=== PATIENT | male | born 1970 | race African-American/Black ===

== ENCOUNTER 2020-11-15 05:51 | Emergency (ER) | payer OTHER ==
[~2020-11-15] VITALS: Ht 182.9 cm; Wt 85.3 kg
[2020-11-15] MEDS ORDERED: IV NORMAL SALINE 1000 ML BAG IV ONE ×2 (06:30→08:15)
[2020-11-15 07:03] LABS: BASOPHILS % (AUTO) 0.4 % (0.0-2.0); EOSINOPHILS % (AUTO) 0.3 % (0.0-7.0); HEMATOCRIT 43.9 % (36.7-47.1); HEMOGLOBIN 14.6 g/dL (12.5-16.3); LYMPHOCYTES # (AUTO) 1.1 K/uL (20.0-40.0); LYMPHOCYTES % (AUTO) 26.9 % (20.5-51.5); MEAN CORPUSCULAR HEMOGLOBIN 28.6 uug (23.8-33.4); MEAN CORPUSCULAR HGB CONC 33 g/dL (32.5-36.3); MONOCYTES # (AUTO) 0.3 K/uL (2.0-10.0); MONOCYTES % (AUTO) 6.9 % (0.0-11.0); NEUTROPHILS # (AUTO) 2.8 K/uL (1.8-8.9); NEUTROPHILS % (AUTO) 65.5 % (38.5-71.5); PLATELET COUNT (AUTO) 240 K/uL (152-348); WHITE BLOOD COUNT (AUTO) 4.2 K/uL (3.6-10.2)
[2020-11-15 07:15] LABS: CREATININE 1.6 mg/dL (0.6-1.3); POTASSIUM 3.4 mmol/L (3.5-5.1)
--- NOTE | 2020-11-15 07:16 | NUR ---
Report given to ANGELICA BROWN
[2020-11-15 07:20] LABS: BILIRUBIN,DIRECT 0.1 mg/dL (0.0-0.2); BILIRUBIN,TOTAL 0.4 mg/dL (0.2-1.0); TOTAL PROTEIN, SERUM 7.3 g/dL (6.4-8.2)
[2020-11-15 07:29] LABS: *BILIRUBIN,URIN NEGATIVE (NEGATIVE); *BLOOD, URINE 1+ (NEGATIVE); *CLARITY,URINE CLEAR (CLEAR); *COLOR,URINE YELLOW (YELLOW); *KETONES,URINE 1+ (NEGATIVE); *UROBILINOGEN,URINE 0.2 E.U./dl (NORMAL); LEUKOCYTE ESTERASE ,URINE NEGATIVE (NEGATIVE); NITRITE, URINE NEGATIVE (NEGATIVE); PH,URINE 5.5 (5.0-8.0); UGLUCOSE NEGATIVE (NEGATIVE)
--- NOTE | 2020-11-15 07:56 | NUR ---
Dr Naik at the bedside discussing plan of care w/ pt.
[2020-11-15] MEDS ORDERED: ONDANSETRON 4 MG/2 ML VIAL IV ONE (08:15)
[2020-11-15] MEDS ORDERED: MORPHINE SULFATE 4 MG/1 ML DISP.SYRIN IV ONE ×2 (08:15→09:00)
[2020-11-15] MEDS ORDERED: MORPHINE SULFATE 4 MG/1 ML DISP.SYRIN ONE ×2 (08:19→08:55)
[2020-11-15] MEDS ORDERED: ONDANSETRON 4 MG/2 ML VIAL ONE (08:19)
--- NOTE | 2020-11-15 08:32 | NUR ---
VINCENT FROM [employer] WAS JUST NOTIFIED OF THIS STUDY. SINCE THE ORDER JUST CAME IN. IT SEEMS WE WERE HAVING AN ISSUE WITH THE PRINTER, WHICH I RESTARTER AND IS NOW WORKING PROPERLY.
--- NOTE | 2020-11-15 10:29 | NUR ---
Patient discharged to home in stable condition. Written and verbal after care instructions given. Patient verbalizes understanding of instructions. Stressed follow up or return to ER for worsening s/s.
[2020-11-15 10:30] VITALS: BP 129/77
--- NOTE | 2020-11-15 10:30 | NUR ---
IV removed. Catheter intact and site benign. Pressure and 4x4 gauze applied to site. No bleeding noted.
--- NOTE | 2020-11-15 12:02 | NUR ---
left message. would like patient to return secondary to elevated ck
--- NOTE | 2020-11-15 12:23 | NUR ---
SPOKE TO . THE PATIENT IS RETURNING HERE
[2020-11-15 13:53] LABS: BACTERIA,URINE NONE SEEN /HPF (NONE SEEN); SQUAMOUS EPITHELIAL CELL,UR FEW /HPF (NONE SEEN); WBC,URINE NONE SEEN /HPF (0-3)
== END 2020-11-15 10:31 | disposition home or self-care (01) ==
LOC: ER 06:14
DX: R10.31 Right lower quadrant pain (principal); K62.89 Other specified diseases of anus and rectum; Z87.448 Personal history of other diseases of urinary system; R94.5 Abnormal results of liver function studies; Z82.49 Family history of ischemic heart disease and other diseases of the circulatory system; E87.6 Hypokalemia
CPT/HCPCS: 36415; 74176; 76872; 80048; 80076; 81001; 82550; 83605; 83690; 84153; 84484; 85025; 85730; 87086; 96361; 96374; 96375; 96376; 99285; J2270 ×2; J2405; 70030-TC; 93005; A4663; J7030

== ENCOUNTER 2020-11-15 12:56 | Inpatient (IN) | payer OTHER ==
[~2020-11-15] VITALS: Ht 182.9 cm; Wt 85.3 kg
[2020-11-15] MEDS ORDERED: IV NORMAL SALINE 1000 ML BAG IV ONE (13:15)
[2020-11-15] MEDS ORDERED: ONDANSETRON 4 MG/2 ML VIAL IV PRN (15:00)
[2020-11-15] MEDS ORDERED: MAGNESIUM HYDROXIDE 30 ML LIQUID UDC PO PRN (15:00)
[2020-11-15] MEDS ORDERED: ACETAMINOPHEN 325 MG TABLET PO PRN (15:00)
--- NOTE | 2020-11-15 15:11 | NUR ---
ENRIQUE SARABIA NP t bedside.
--- NOTE | 2020-11-15 15:20 | NUR ---
US TECH AT [facility].
--- NOTE | 2020-11-15 15:59 | NUR ---
pt transfered to floor in stable condition. pt remained calm the whole er. pt said feels better.
[2020-11-15 16:30] VITALS: BP 143/65
[2020-11-15] MEDS: IV NS 1000 ML 1,000 ML IV PRN (19:54)
[2020-11-15 20:23] VITALS: BP 138/46
[2020-11-15] MEDS: CIPROFLOXACIN HCL 250 MG TABLET PO SCH (20:45)
[2020-11-15] MEDS ORDERED: HYDROCODONE/APAP 5-325MG TABLET PO PRN (21:15)
[2020-11-15 23:00] LABS: *AMPHETAMINE, URINE NEGATIVE (NEGATIVE); *CANNABINOID, URINE NEGATIVE (NEGATIVE); *COCCAINE, URINE NEGATIVE (NEGATIVE); *OPIATE, URINE POSITIVE (NEGATIVE); *PHENCYCLIDINE SCREEN,URINE NEGATIVE (NEGATIVE)
[2020-11-16] MEDS: IV NS 1000 ML 1,000 ML IV PRN ×4 (01:41→20:24)
[2020-11-16 05:37] VITALS: BP 139/60
--- NOTE | 2020-11-16 06:00 | NUR ---
END OF SHIFT REPORT Pt rested well in between care; urine sent to lab; no BM overnight; IVF started and tolerated well; continue to monitor.
[2020-11-16 07:15] LABS: BASOPHILS % (AUTO) 0.3 % (0.0-2.0); EOSINOPHILS % (AUTO) 0.6 % (0.0-7.0); HEMATOCRIT 38.2 % (36.7-47.1); HEMOGLOBIN 12.8 g/dL (12.5-16.3); LYMPHOCYTES # (AUTO) 1.2 K/uL (20.0-40.0); LYMPHOCYTES % (AUTO) 31.8 % (20.5-51.5); MEAN CORPUSCULAR HGB CONC 34 g/dL (32.5-36.3); MEAN CORPUSCULAR VOLUME 86.3 fL (73.0-96.2); MONOCYTES # (AUTO) 0.3 K/uL (2.0-10.0); MONOCYTES % (AUTO) 7.4 % (0.0-11.0); NEUTROPHILS # (AUTO) 2.2 K/uL (1.8-8.9); NEUTROPHILS % (AUTO) 59.9 % (38.5-71.5); PLATELET COUNT (AUTO) 214 K/uL (152-348); RED BLOOD CELL COUNT(AUTO) 4.42 MIL/uL (4.06-5.63); WHITE BLOOD COUNT (AUTO) 3.7 K/uL (3.6-10.2)
[2020-11-16 07:25] LABS: CREATININE 1.6 mg/dL (0.6-1.3); PHOSPHOROUS 3.5 mg/dL (2.5-4.9); POTASSIUM 5.2 mmol/L (3.5-5.1)
[2020-11-16 08:17] VITALS: BP 142/82
[2020-11-16 08:40] LABS: THYROID STIMULATING HORMONE 1.866 mIU/mL (0.358-3.740)
[2020-11-16] MEDS: CIPROFLOXACIN HCL 250 MG TABLET PO SCH ×2 (08:59→20:09)
[2020-11-16] MEDS ORDERED: DEXTROSE 50% 50 ML DISP.SYRIN IV ONE (09:30)
[2020-11-16] MEDS ORDERED: INSULIN REGULAR, HUMAN 300 UNIT/3 ML VIAL IV ONE (09:30)
--- NOTE | 2020-11-16 13:42 | NUR ---
Upon the supervision of the charged nurse pt was administered with 10 units Regular insulin and dextrose 50%/50ml for hyperkalemia of 5.2, on reassessment the glucose went down to 21, patient is awake, alert oriented, able to converse needs, he was given orange juice with four packets of pure sugar and provided sandwich to eat. pt was frequently observe for s/s of hypoglycemia. charged nurse and ELLEN Ray was informed. on reassessment blood glucose was 64, provided with orange juice with pure sugar, pt ate his lunch. on reassessment finger stick blood glucose was 91. ELLEN Ray was informed. pt don't have s/s of hyperglycemia. will be on regular monitoring
--- NOTE | 2020-11-16 14:00 | NUR ---
had collected stool sample, brought to lab
[2020-11-16 16:06] VITALS: BP 141/69
[2020-11-16 20:55] VITALS: BP 139/54
--- NOTE | 2020-11-16 20:57 | NUR ---
Received pt resting in bed and talking on the phone. AAO x4. No acute distress noted. Denies pain/ discomfort. Due meds given as ordered. Pt on IVF NS 150cc/ hr. Pt unable to tolerate the rate as pt complain of pressure and discomfort. IV patent and intact. Notified Dr. Dong during rounds, and received order to decreased the rate to 100cc/hr. Pt stated that it feels better and comfortable now. Safety measures maintained. Call light and personal items within reach. Will continue to monitor.
[2020-11-16 21:52] LABS: EOSINOPHILS % (MANUAL) 1 % (0-8); LYMPHOCYTES % (MANUAL) 38 % (20-40); MONOCYTES % (MANUAL) 10 % (2-10); NEUTROPHILS % (MANUAL) 51 % (42-75)
[2020-11-17 04:35] VITALS: BP 135/79
[2020-11-17] MEDS: IV NS 1000 ML 1,000 ML IV PRN (06:24)
[2020-11-17 06:45] LABS: BASOPHILS % (AUTO) 0.3 % (0.0-2.0); EOSINOPHILS % (AUTO) 0.9 % (0.0-7.0); HEMATOCRIT 40.4 % (36.7-47.1); HEMOGLOBIN 13.3 g/dL (12.5-16.3); LYMPHOCYTES # (AUTO) 1.3 K/uL (20.0-40.0); LYMPHOCYTES % (AUTO) 29.1 % (20.5-51.5); MEAN CORPUSCULAR HEMOGLOBIN 28.6 uug (23.8-33.4); MEAN CORPUSCULAR HGB CONC 33 g/dL (32.5-36.3); MEAN CORPUSCULAR VOLUME 86.7 fL (73.0-96.2); MONOCYTES # (AUTO) 0.3 K/uL (2.0-10.0); MONOCYTES % (AUTO) 7.6 % (0.0-11.0); NEUTROPHILS # (AUTO) 2.7 K/uL (1.8-8.9); NEUTROPHILS % (AUTO) 62.1 % (38.5-71.5); PLATELET COUNT (AUTO) 206 K/uL (152-348); RED BLOOD CELL COUNT(AUTO) 4.66 MIL/uL (4.06-5.63); WHITE BLOOD COUNT (AUTO) 4.3 K/uL (3.6-10.2)
[2020-11-17 07:09] LABS: CREATININE 1.5 mg/dL (0.6-1.3); MAGNESIUM 1.8 mg/dL (1.8-2.4); PHOSPHOROUS 3.5 mg/dL (2.5-4.9); POTASSIUM 4.9 mmol/L (3.5-5.1)
--- NOTE | 2020-11-17 08:20 | NUR ---
Patient is alert and oriented x4. Denies pain or discomfort. IV on Left ac intact and patent tolerating iv hydration. No sob noted. Kept comfortable. Call light within reach. Will continue to monitor.
[2020-11-17] MEDS: CIPROFLOXACIN HCL 250 MG TABLET PO SCH (09:25)
[2020-11-17 12:39] VITALS: BP 142/80
--- NOTE | 2020-11-17 14:51 | NUR ---
Patient is discharged to home. Patient is alert and oriented x4. On room air O2 saturation 99%. No respiratory distress noted. Denies pain or discomfort. RAC IV line removed and tolerated. No bleeding noted. Patient education done. Patient verbalized understanding. Patient was offered the flu vaccine and verbalized he wants it. However, per MD patient should wait until after his diarrhea has fully resolved. Patient verbalized understanding and said will get it after. All belongings are inventoried and confirmed by the patient. Discharged via wheelchair and picked by friend in stable condition.
== END 2020-11-17 14:50 | disposition home or self-care (01) | DRG 557 ==
LOC: ER 12:56 → MEDSURG3 15:15
PROVIDERS: ADMIT Registered Nurse; ATTEND Registered Nurse
DX: M62.82 Rhabdomyolysis (principal); N17.0 Acute kidney failure with tubular necrosis; E87.5 Hyperkalemia; M60.9 Myositis, unspecified; R73.03 Prediabetes; Z20.822 Contact with and (suspected) exposure to COVID-19; Z82.49 Family history of ischemic heart disease and other diseases of the circulatory system; Z83.3 Family history of diabetes mellitus; R74.01 Elevation of levels of liver transaminase levels; N18.9 Chronic kidney disease, unspecified; A08.4 Viral intestinal infection, unspecified; B35.1 Tinea unguium
CPT/HCPCS: 36415; 70030-TC; 83735; 84100; 84153; 84443; 85025; 86625; 87046; 93307; A4663; G0378; J1815; J3490; J7030